=== PATIENT | female | born 1980 | race Caucasian/White ===

== ENCOUNTER → 2018-04-09 | Outpatient (CLI) | payer OTHER ==
--- NOTE | 2018-04-09 15:31 | XR ---
EXAMINATION TYPE: XR cervical spine limited DATE OF EXAM: 04/09/2018 COMPARISON: NONE HISTORY: 37-year-old female with neck pain TECHNIQUE: 4 views FINDINGS: Odontoid view shows no gross abnormality. Post surgical changes of C6-C7 ACDF. There may be some dege nerative joint space narrowing also at the right C1-C2 lateral mass articulation. Alignment is mainta ined. Some degenerative change at the C1 dens articulation. No retropulsion of the interbody device. IMPRESSION: 1. Suggestion of some degenerative changes at the C1-C2 articulation. 2. The patient's C6-C7 ACDF appears uncomplicated. No prevertebral soft tissue swelling or malalignme nt.
== END ==
LOC: RADXRMAIN 14:53
DX: M54.2 Cervicalgia (principal); Z98.1 Arthrodesis status
CPT/HCPCS: 72040

== ENCOUNTER → 2018-05-27 | Outpatient (CLI) | payer OTHER ==
--- NOTE | 2018-05-27 16:32 | XR ---
EXAMINATION TYPE: XR cervical spine comp DATE OF EXAM: 05/27/2018 COMPARISON: 04/09/2018 HISTORY: 37-year-old female neck pain, status post surgical fusion, follow-up surgery performed on 03/05/2018 TECHNIQUE: 4 views, AP, lateral, flexion and extension FINDINGS: No predental space widening or prevertebral soft tissue swelling. There is preserved alignment of the cervical spine status post C6-C7 ACDF. No dynamic subluxation is seen on flexion or extension. Mild facet and uncovertebral joint arthropathy lower cervical spine. IMPRESSION: Status post C6-C7 ACDF without spondylolisthesis or dynamic subluxation seen.
== END | disposition home or self-care (01) ==
LOC: RADXRMAIN 16:08
PROVIDERS: ATTEND Neurological Surgery
DX: M54.2 Cervicalgia (principal); Z98.1 Arthrodesis status
CPT/HCPCS: 72050

== ENCOUNTER → 2018-09-04 | Outpatient (CLI) | payer OTHER ==
--- NOTE | 2018-09-04 16:57 | XR ---
EXAMINATION TYPE: XR shoulder complete LT DATE OF EXAM: 09/04/2018 COMPARISON: NONE HISTORY: Pain TECHNIQUE: Shoulder examined in 3 views FINDINGS: The humeral head articulates with the glenoid. The acromio-clavicular junction is normal. No acute fractures or dislocations are evident. A follow up study can be performed 7-10 days from acute trauma for continued pain. IMPRESSION: 1. Normal left Shoulder
--- NOTE | 2018-09-04 16:59 | XR ---
EXAMINATION TYPE: XR lumbar spine 2 or 3V DATE OF EXAM: 09/04/2018 COMPARISON: None HISTORY: Low back pain M 54.5, and 54.32, V 45.4, Z 98.1 TECHNIQUE: Three-view lumbar spine FINDINGS: There 5 lumbar-type vertebral bodies. Pedicles are intact. Disc heights are preserved. Vert ebral body heights are preserved. IMPRESSION: 1. Normal three-view lumbar spine
--- NOTE | 2018-09-04 19:25 | XR ---
EXAMINATION TYPE: XR cervical spine limited DATE OF EXAM: 09/04/2018 COMPARISON: 05/27/2018 HISTORY: M 54.32 TECHNIQUE: Lateral AP and open-mouth odontoid views cervical spine FINDINGS: Tip of the odontoid is limited due to overlying occiput. There is an anterior cervical fusi on C6-7. Disc heights appear preserved. Vertebral body heights are preserved. Posterior spinal lamell ar line is intact. No significant interval changes evident. IMPRESSION: 1. Stable appearing cervical spine with postsurgical anterior cervical fusion C6-7.
== END | disposition home or self-care (01) ==
LOC: RADXRMAIN 09:53
PROVIDERS: ATTEND Neurological Surgery
DX: M54.2 Cervicalgia (principal); M54.5 Low back pain; M25.512 Pain in left shoulder; Z98.1 Arthrodesis status
CPT/HCPCS: 72040; 72100

== ENCOUNTER → 2018-09-11 | Outpatient (CLI) | payer OTHER ==
--- NOTE | 2018-09-11 15:45 | US ---
EXAMINATION TYPE: US thyroid st tissue head/neck DATE OF EXAM: 09/11/2018 COMPARISON: NONE CLINICAL HISTORY: E04.9 GOITER. GLAND SIZE: Right Lobe: 5.9 x 1.6 x 1.9 cm Overall Parenchyma: heterogenous Left Lobe: 4.8 x 2.3 x 2.1 cm Overall Parenchyma: heterogeneous Isthmus Thickness: 1.3 cm NODULES RIGHT: # of nodules measured on right: 0 in lobular heterogeneous appearance to gland LEFT: # of nodules measured on left: 1 1. 2.0 X 1.6 x 1.4 cm echogenic predominantly solid nodule at the lower pole with well-defined chastity ins. This nodule is wider than tall and shows intranodular vascularity. ISTHMUS: # of nodules measured in the isthmus: 0 Bilateral neck scanned: no evidence of lymphadenopathy. Markedly heterogeneous slightly enlarged thyroid gland is identified IMPRESSION: A 2.0 cm left thyroid nodule is a TR 3 lesion, advise ultrasound surveillance given under 2.5 cm in size.
== END | disposition home or self-care (01) ==
LOC: RADUSWWP 14:59
PROVIDERS: ATTEND Family Medicine
DX: E04.1 Nontoxic single thyroid nodule (principal); E07.9 Disorder of thyroid, unspecified
CPT/HCPCS: 76536

== ENCOUNTER 2018-10-29 09:27 | Day surgery (SDC) | payer OTHER ==
[2018-10-28 13:47] VITALS: BMI 26.4
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
[~2018-10-29 09:27] MED LIST: LACTATED RINGERS 1,000 ML IV SCH
[2018-10-29 09:54] VITALS: TEMP 97.6
[2018-10-29] MEDS ORDERED: LIDOCAINE 1% INJ 10MG/ML (20 ML MDV) ONE (10:29)
[2018-10-29] MEDS ORDERED: GLYCOPYRROLATE 0.2 MG/ML 2 ML VIAL ONE (10:29)
[2018-10-29] MEDS ORDERED: PROPOFOL 10 MG/ML 20 ML VIAL IV ONE (10:29)
[2018-10-29 10:50] VITALS: PULSE 73
--- NOTE | 2018-10-29 10:54 | P.PCN ---
Date of Procedure: 10/29/18 Description of Procedure: PREOPERATIVE DIAGNOSIS: Gastroesophageal reflux disease. History of gastric ulcers POSTOPERATIVE DIAGNOSIS: Gastroesophageal reflux disease. History of gastric ulcers Gastritis, superficial acute on chronic without bleeding Duodenitis without bleeding OPERATION: Esophagogastroduodenoscopy with biopsies along antrum and duodenum SURGEON: Lizeth Bullock MD ANESTHESIA: MAC. INDICATIONS: The patient is a 38-year-old female who presents with a history of reflux disease. Benefits and risks of the procedure were described. Informed consent was obtained. DESCRIPTION: The patient was brought into the endoscopy suite and laid in the left lateral decubitus position. An Olympus gastroscope was passed along the posterior oropharynx down to the distal esophagus where the squamocolumnar junction was encountered at 35 cm from the incisors. The stomach was entered and no bile reflux was found. Additional findings are listed below. Biopsies with cold forceps were obtained of the antrum. The first through third portion of the duodenum was examined and remarkable for duodenitis. Retroflexion of the scope confirmed Hill grade 2 lower esophageal valve. The squamocolumnar junction demonstrated LA grade A erosive esophagitis. The stomach was desufflated. The patient tolerated the procedure well. FINDINGS: Squamocolumnar junction 35 cm from the incisors. Diaphragmatic hiatus at 35 cm. Hill grade 2 lower esophageal valve. LA grade A erosive esophagitis. Active duodenitis. Chronic gastritis with recent bleed RECOMMENDATIONS: Upper endoscopy as needed. Plan - Discharge Summary Discharge Rx Participant: No New Discharge Prescriptions: No Action HYDROcodone/APAP 10-325MG [[place] 10-325] 0.5 tab PO TID PRN PRN Reason: Pain Levothyroxine Sodium [Synthroid] 50 mcg PO DAILY Discharge Medication List HYDROcodone/APAP 10-325MG [[place] 10-325] 0.5 tab PO TID PRN 10/28/18 [History] Levothyroxine Sodium [Synthroid] 50 mcg PO DAILY 10/28/18 [History] Follow up Appointment(s)/Referral(s): Lizeth Bullock MD [STAFF PHYSICIAN] - 11/04/18 Patient Instructions/Handouts: Duodenitis (DC), Gastritis (DC), Diet for Stoma ch Ulcers and Gastritis (ED) Discharge Disposition: HOME SELF-CARE
[2018-10-29 11:02] VITALS: BP 113/72; RESP 18
== END 2018-10-29 11:41 | disposition home or self-care (01) ==
LOC: ORWHC2ENDO 09:27
PROVIDERS: ATTEND Surgery Plastic and Reconstructive Surgery
DX: K22.10 Ulcer of esophagus without bleeding (principal); K29.50 Unspecified chronic gastritis without bleeding; K29.80 Duodenitis without bleeding; K21.9 Gastro-esophageal reflux disease without esophagitis; Z87.11 Personal history of peptic ulcer disease; E07.9 Disorder of thyroid, unspecified; D17.1 Benign lipomatous neoplasm of skin and subcutaneous tissue of trunk; Z87.19 Personal history of other diseases of the digestive system; Z98.1 Arthrodesis status; Z79.890 Hormone replacement therapy
CPT/HCPCS: 81025; 88305; 43239; J2001; J2704

== ENCOUNTER 2018-11-10 12:58 | Day surgery (SDC) | payer OTHER ==
[2018-11-10 14:59] VITALS: PULSE 74; RESP 18; TEMP 98.2
[2018-11-10 15:00] VITALS: BP 101/65
--- NOTE | 2018-11-10 16:58 | US ---
EXAMINATION TYPE: US FNA thyroid first lesion DATE OF EXAM: 11/10/2018 COMPARISON: NONE HISTORY: Thyroid nodule. Maximal barrier technique was utilized. After informed consent, skin overlying the left lobe thyroid lower pole nodule was localized with ultrasound and the overlying skin prepped and draped. Ultrasoun d was utilized using sterile technique. Lidocaine was used for local anesthesia. Five passes with a 25-gauge needle were made into the nodule and aspirated specimen was submitted to cytology. Followin g the procedure hemostasis achieved. No immediate complication. The patient discharged in stable co ndition. IMPRESSION: STATUS POST ULTRASOUND GUIDED FINE NEEDLE ASPIRATION OF THYROID NODULE, PATHOLOGY IS PEND ING. THIS PROCEDURE WAS PERFORMED BY THE UNDERSIGNED.
== END 2018-11-10 14:15 | disposition home or self-care (01) ==
LOC: RADPROMAIN 12:58
PROVIDERS: ATTEND Surgery Plastic and Reconstructive Surgery
DX: E04.1 Nontoxic single thyroid nodule (principal)
CPT/HCPCS: 10005; 88173; 88305

== ENCOUNTER 2018-11-14 10:21 | Day surgery (SDC) | payer OTHER ==
[2018-11-11 14:11] VITALS: BMI 27.9
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
[~2018-11-14 10:21] MED LIST changes: +DEXAMETHASONE SOD PHOSPHATE 10 MG/ML 1 ML VIAL IV ONE; +HYDROmorphone 0.5 MG/0.5 ML SYRINGE IVP PRN; +LIDOCAINE 1% 20 ML VIAL (10MG/ML) FOR IV START INTRADERMA PRN; +ONDANSETRON 4 MG/2 ML VIAL IVP ONE; +Pre Op ABX Message 1 EACH MISC MISCELLANE ONE; +SCOPOLAMINE 1.5MG/72HR PATCH TRANSDERM ONE
[2018-11-14] MEDS ORDERED: LACTATED RINGERS 1,000 ML IV ONE (10:49)
[2018-11-14 10:51] VITALS: TEMP 97.8
[2018-11-14] MEDS ORDERED: PROPOFOL 10 MG/ML 20 ML VIAL IV ONE (12:41)
[2018-11-14] MEDS ORDERED: LIDOCAINE 1% INJ 10MG/ML (20 ML MDV) ONE (12:41)
[2018-11-14] MEDS ORDERED: fentaNYL (PF) 50 MCG/ML 2 ML AMP ONE (12:41)
[2018-11-14] MEDS ORDERED: MIDAZOLAM 2 MG/2 ML VIAL ONE (12:41)
[2018-11-14] MEDS ORDERED: BUPIVACAINE (PF) 0.25% 30 ML VIAL SQ ONE (12:45)
--- NOTE | 2018-11-14 14:07 | P.OP ---
Date of Procedure: 11/14/18 Description of Procedure: SURGEON: LIZETH BULLOCK MD CHIEF CREATIVE OFFICER: None. PREOPERATIVE DIAGNOSES: 1. Right lower back tumor 2. Chronic back pain 3. Hypothyroidism POSTOPERATIVE DIAGNOSES: 1. Deep subfascial right lower back tumor, 10 x 6 cm 2. Chronic back pain 3. Hypothyroidism PROCEDURES PERFORMED: 1. Excision of deep subfascial right lower back mass, 10 x 6 cm 2. Intermediate closure right lower back incision, 10-cm Anesthesia: GETA, local Estimated Blood Loss (ml): 20 Pathology: other (back mass) Condition: stable Disposition: same day COMPLICATIONS: None. INDICATIONS: The patient is a 38-year-old female who presents with symptomatic right lower back tumor. Benefits and risks of surgical intervention were described including bleeding, infection. Informed consent was obtained. DESCRIPTION OR PROCEDURE: In the preoperative area, the area of concern was marked with indelible marker. Patient was brought into the operating room. After general induction, he was positioned in right lateral decubitus position. The back was prepped and draped in a standard sterile fashion with ChloraPrep. Timeout protocol was confirmed with the surgical team regarding the patient's name, procedure to be performed including preoperative medications. DVT prophylaxis was confirmed. A field block was placed of the right lower back. An incision using #10 blade was made along the marking into the dermis and subcutaneous tissue. Electro-Bovie cautery was used to enter deep into the fascia where a multi-lobulated fatty tumor was removed in total of 10 x 6 cm in size. 0 Vicryl for the deep subcutaneous tissue followed by 3-0 Vicryl was placed in interrupted fashion. 4-0 Monocryl in a running subcuticular fashion was placed along the dermis. The skin was cleansed and Exofin tape with liquid was applied for a four layer closure. The incision was covered with Optifoam dressing. The patient tolerated the procedure well. Operative Findings: 1. Excision of deep subfascial multi-lobulated lipoma, 10 x 6 cm right lower back removed in total Plan - Discharge Summary Discharge Rx Participant: No New Discharge Prescriptions: No Action HYDROcodone/APAP 10-325MG [[place] 10-325] 0.5 tab PO TID PRN PRN Reason: Pain Levothyroxine Sodium [Synthroid] 50 mcg PO DAILY Aspirin/Acetaminophen/Caffeine [Excedrin Extra Strength Caplet] 1 tab PO DAILY PRN PRN Reason: Headache Discharge Medication List HYDROcodone/APAP 10-325MG [[place] 10-325] 0.5 tab PO TID PRN 10/28/18 [History] Levothyroxine Sodium [Synthroid] 50 mcg PO DAILY 10/28/18 [History] Aspirin/Acetaminophen/Caffeine [Excedrin Extra Strength Caplet] 1 tab PO DAILY PRN 11/05/18 [History] Follow up Appointment(s)/Referral(s): Lizeth Bullock MD [STAFF PHYSICIAN] - 11/18/18 Patient Instructions/Handouts: *Surgery [facility] - Scopalamine Patch Instructions, Excision of Skin Lesion (DC) Activity/Diet/Wound Care/Special Instructions: May shower. No bath tub soaks until Nov 24. No stretching of the skin of the back. Do not remove dressing. Dressing to be discontinued in the office. Diet as tolerated. No lifting over 10 pounds for 10 days, November 24. Use ice for incision. Discharge Disposition: HOME SELF-CARE
[2018-11-14] MEDS ORDERED: KETOROLAC 30 MG/ML 1 ML VIAL IVP ONE (14:12)
[2018-11-14 15:23] VITALS: BP 120/78; PULSE 68; RESP 20
== END 2018-11-14 15:50 | disposition home or self-care (01) ==
LOC: OR 10:21
PROVIDERS: ATTEND Surgery Plastic and Reconstructive Surgery
DX: D17.1 Benign lipomatous neoplasm of skin and subcutaneous tissue of trunk (principal); Z79.890 Hormone replacement therapy; Z79.891 Long term (current) use of opiate analgesic; Z79.82 Long term (current) use of aspirin; E03.9 Hypothyroidism, unspecified; G89.29 Other chronic pain; D17.9 Benign lipomatous neoplasm, unspecified
CPT/HCPCS: 81025; 88304; 21933; J2250; J1100; J0690; J2405; J2001; J3010; J1885; J2704

== ENCOUNTER 2021-03-31 05:00 | Emergency (ER) | payer OTHER ==
[2021-03-31 05:17] VITALS: BP 99/62; PULSE 74; RESP 19; TEMP 97.1
--- NOTE | 2021-03-31 05:58 | XR ---
EXAM: XR Right Knee, 3 Views CLINICAL HISTORY: ITS.REASON XR Reason: pain. TECHNIQUE: Three views of the right knee. COMPARISON: No relevant prior studies available. FINDINGS: Bones/joints: Unremarkable. No acute fracture. No dislocation. Soft tissues: Unremarkable. IMPRESSION: Normal right knee x-rays.
[2021-03-31] MEDS ORDERED: IBUPROFEN 600 MG TAB PO STA (06:12)
[2021-03-31] MEDS ORDERED: traMADol 50 MG TAB PO STA (06:12)
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
== END 2021-03-31 06:42 | disposition home or self-care (01) ==
LOC: EC 05:00
DX: M76.51 Patellar tendinitis, right knee (principal); E07.9 Disorder of thyroid, unspecified; Z79.82 Long term (current) use of aspirin
CPT/HCPCS: 99283

== ENCOUNTER → 2021-05-09 | Outpatient (CLI) | payer OTHER ==
--- NOTE | 2021-05-09 15:24 | US ---
EXAMINATION TYPE: US thyroid st tissue head/neck DATE OF EXAM: 05/09/2021 COMPARISON: 09/11/2018 and 11/10/2018 CLINICAL HISTORY: 40-year-old female E04.1 Thyroid nodule. Follow up thyroid nodule, patient on thyro id meds, difficulty swallowing, history of thyroid FNA TECHNIQUE: Multiple sonographic images of the thyroid gland are obtained. FINDINGS: GLAND SIZE: Right Lobe: 5.4 x 1.9 x 1.7 cm, enlarged Overall Parenchyma: heterogenous Left Lobe: 5.3 x 2.3 x 2.3 cm, enlarged Overall Parenchyma: heterogeneous Isthmus Thickness: 0.9 cm NODULES RIGHT: # of nodules measured on right: 0 LEFT: # of nodules measured on left: 1 1. 1.9 X 1.8 x 1.8 cm, lower mid, solid or almost completely solid, hypoechoic TR 4 nodule, which i s wider than tall, with ill-defined margins, without echogenic foci. Prior size: 2.0 x 1.6 x 1.4 cm ISTHMUS: # of nodules measured in the isthmus: 0 Bilateral neck scanned, no evidence of lymphadenopathy. IMPRESSION: 1. Mild thyromegaly with markedly heterogeneous parenchyma. Correlate for goiter or diffuse thyroidit is. 2. Solitary solid TR4 nodule left mid to lower pole is relatively stable at 1.9 x 1.8 cm (versus 2.0 x 1.6 cm, previously).
== END | disposition home or self-care (01) ==
LOC: RADUSWWP 12:20
PROVIDERS: ATTEND Family Medicine
DX: E04.1 Nontoxic single thyroid nodule (principal)
CPT/HCPCS: 76536

== ENCOUNTER 2023-06-14 01:30 | Emergency (ER) | payer OTHER ==
[2023-06-14] MEDS: SODIUM CHLORIDE 0.9% 1,000 ML IV STA (02:35)
[2023-06-14] MEDS: ONDANSETRON 4 MG/2 ML VIAL IVP STA (02:35)
[2023-06-14] MEDS: KETOROLAC 15 MG/ML 1 ML VIAL IVP STA (02:35)
[2023-06-14 02:56] VITALS: TEMP 98.8
[2023-06-14 03:02] LABS: Basophils % (A) 0 %; Eosinophils % (A) 0 %; HCT 36.5 % (34.0-46.0); HGB 11.7 gm/dL (11.4-16.0); Lymphocytes # (A) 1.4 k/uL (1.0-4.8); Lymphocytes % (A) 12 %; MCH 28.3 pg (25.0-35.0); MCHC 32.2 g/dL (31.0-37.0); MCV 87.9 fL (80.0-100.0); Mean Platelet Volume 8.5; Monocytes # (A) 0.7 k/uL (0-1.0); Monocytes % (A) 6 %; Neutrophils # (A) 9.6 k/uL (1.3-7.7); Neutrophils % (A) 81 %; Platelet Count 244 k/uL (150-450); RBC 4.15 m/uL (3.80-5.40); RDW 14.8 % (11.5-15.5); WBC 11.8 k/uL (3.8-10.6)
[2023-06-14 03:15] LABS: ALT 17 U/L (4-34); AST 17 U/L (14-36); African American GFR (CKD) >90 (>60 ml/min/1.73 sqM); Alkaline Phosphatase 62 U/L (38-126); Amylase 59 U/L (30-110); Anion Gap 10 mmol/L; Blood Urea Nitrogen 18 mg/dL (7-17); Calcium 9.4 mg/dL (8.4-10.2); Carbon Dioxide 21 mmol/L (22-30); Chloride 106 mmol/L (98-107); Glucose 109 mg/dL (74-99); Lipase 221 U/L (23-300); Non-African American GFR(CKD) >90 (>60 ml/min/1.73 sqM); Potassium 3.7 mmol/L (3.5-5.1); Sodium 137 mmol/L (137-145); Total Bilirubin 0.7 mg/dL (0.2-1.3); Total Protein 7.3 g/dL (6.3-8.2)
[2023-06-14 03:53] LABS: Appearance,Urine Clear (Clear); Bilirubin,Urine Negative (Negative); Blood,Urine Negative (Negative); Color,Urine Colorless; Glucose,Urine (UA) Negative (Negative); Ketones,Urine Negative (Negative); Leukocyte Esterase,Urine Negative (Negative); Nitrite,Urine Negative (Negative); Protein,Urine Negative (Negative); Specific Gravity,Urine 1.027 (1.001-1.035); Urobilinogen,Urine <2.0 mg/dL (<2.0)
[2023-06-14 04:00] LABS: HCG,Qualitative Serum Not Detected
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
--- NOTE | 2023-06-14 06:56 | CT ---
EXAM: CT Abdomen and Pelvis With Intravenous Contrast CLINICAL HISTORY: ITS.REASON CT Reason: abdominal pain TECHNIQUE: Axial computed tomography images of the abdomen and pelvis with intravenous contrast. CTDI is 14.5 mGy and DLP is 682.2 mGy-cm. This CT exam was performed using one or more of the following dose reduction techniques: automated exposure control, adjustment of the mA and/or kV according to patient size, and/or use of iterative reconstruction technique. COMPARISON: No relevant prior studies available. FINDINGS: Lung bases: Unremarkable. No mass. No consolidation. ABDOMEN: Liver: Unremarkable. No mass. Gallbladder and bile ducts: Contracted gallbladder. No calcified stones. No ductal dilation. Pancreas: Unremarkable. No mass. No ductal dilation. Spleen: Unremarkable. No splenomegaly. Adrenals: Unremarkable. No mass. Kidneys and ureters: Unremarkable. No solid mass. No hydronephrosis. Stomach and bowel: No evidence of bowel obstruction. No mucosal thickening. PELVIS: Appendix: Normal appendix. Bladder: Unremarkable. No mass. Reproductive: Abnormal uterine contour with multiple suspected fibroids. Consider pelvic ultrasound if there is further concern. ABDOMEN and PELVIS: Intraperitoneal space: Unremarkable. No free air. No significant fluid collection. Bones/joints: Degenerative changes in the spine. No acute fracture. No dislocation. Soft tissues: Umbilical hernia containing fat. Vasculature: Unremarkable. No abdominal aortic aneurysm. Lymph nodes: Unremarkable. No enlarged lymph nodes. IMPRESSION: 1. Normal appendix. 2. No evidence of bowel obstruction. 3. Abnormal uterine contour with multiple suspected fibroids. Consider pelvic ultrasound if there is further concern. 4. No other acute findings. 5. Incidental findings as described.
[2023-06-14] MEDS: traMADol 50 MG STARTER PACK 3 TAB BTL PO STA (07:18)
[2023-06-14] MEDS: IBUPROFEN 600 MG STARTER PACK 4 TAB BTL PO STA (07:18)
[2023-06-14] MEDS: ONDANSETRON 4 MG ODT STARTER PACK 2 TAB BTL PO STA (07:18)
[2023-06-14 07:41] VITALS: BP 96/60; PULSE 60; RESP 18
== END 2023-06-14 07:15 | disposition home or self-care (01) ==
LOC: EC 01:30
DX: R10.32 Left lower quadrant pain (principal)
CPT/HCPCS: 36415; 80053; 82150; 83605; 83690; 85025; 81003; 84703; 87636; 74177; 99284; 96374; 96375; 96361 ×2; J2405; J1885; S0119; Q9967